=== PATIENT | male | born 1975 | race Caucasian/White ===

== ENCOUNTER 2019-11-01 10:07 | Emergency (ER) | payer MEDICARE, MEDICAID ==
[~2019-11-01] VITALS: Ht 162.6 cm; Wt 100.1 kg
[2019-11-01 10:20] VITALS: BP 145/100
--- NOTE | 2019-11-01 10:44 | NUR ---
PT TO ROOM FROM LOBBY. AMBULATORY C STEADY GAIT. AWAITING EVAL BY ED MD/PA.
== END 2019-11-01 11:15 | disposition home or self-care (01) ==
LOC: ED 11:04
DX: K02.9 Dental caries, unspecified (principal); Z90.49 Acquired absence of other specified parts of digestive tract
CPT/HCPCS: 99283